=== PATIENT | female | born 1975 | race Caucasian/White ===

== ENCOUNTER 2018-11-03 17:08 | Emergency (ER) | payer OTHER ==
[2018-11-03 17:35] VITALS: BP 145/93
--- NOTE | 2018-11-03 17:40 | UC ---
Minor Trauma HPI - HPI Summary HPI Summary: Patient is a 43-year-old female that slipped and fell on icy stairs about 10 AM this morning. He struck her right mid back. She has taken 2 doses of ibuprofen since the fall. Her pain is still moderate to severe. It hurts when she moves or takes a deep breath in. She does not feel short of breath. She did not sustain any head or neck injury. - History of Current Complaint Chief Complaint: UCBackPain Stated Complaint: BACK INJURY Time Seen by Provider: 11/03/18 17:29 Hx Obtained From: Patient Hx Last Menstrual Period: 1 year Onset/Duration: Gradual Onset, Still Present Onset Of Pain: Immediate Severity Initially: Severe Severity Currently: Severe Pain Intensity: 8 Pain Scale Used: 0-10 Numeric Mechanism Of Injury: Fall From A Standing Position Aggravating Factor(s): Coughing, Deep Breaths, Movement Alleviating Factor(s): OTC Meds Associated Signs And Symptoms: Positive: Ecchymosis - right elbow Body - Head: 1 - tender - Risk Factors Penetrating Injury Risk Factors: Negative - Allergies/Home Medications Allergies/Adverse Reactions: Allergies Allergy/AdvReac Type Severity Reaction Status Date / Time No Known Allergies Allergy Verified 05/25/14 11:53 Home Medications: Home Medications amLODIPine TAB* [Norvasc 5 mg TAB*] 5 mg PO DAILY 11/03/18 [History Confirmed ] PMH/Surg Hx/FS Hx/Imm Hx Previously Healthy: Yes Cardiovascular History: Hypertension - Surgical History Surgical History: Yes Surgery Procedure, Year, and Place: - Family History Known Family History: Positive: Hypertension - Social History Alcohol Use: None Substance Use Type: None Smoking Status (MU): Never Smoked Tobacco Review of Systems All Other Systems Reviewed And Are Negative: Yes Constitutional: Positive: Negative Skin: Positive: Bruising Eyes: Positive: Negative ENT: Positive: Negative Respiratory: Positive: Negative Cardiovascular: Positive: Negative Gastrointestinal: Positive: Negative Genitourinary: Positive: Negative Motor: Positive: Negative Neurovascular: Positive: Negative Musculoskeletal: Positive: Negative Neurological: Positive: Negative Psychological: Positive: Negative Physical Exam Triage Information Reviewed: Yes Appearance: Well-Appearing, No Pain Distress, Well-Nourished Vital Signs: Initial Vital Signs Temp 98 F 11/03/18 17:29 Pulse 60 11/03/18 17:29 Resp 16 11/03/18 17:29 BP 145/93 11/03/18 17:29 Pulse Ox 98 11/03/18 17:29 Vital Signs Reviewed: Yes Eyes: Positive: Conjunctiva Clear ENT: Positive: Hearing grossly normal, Uvula midline. Negative: Nasal congestion, Nasal drainage, Tonsillar swelling, Tonsillar exudate, Muffled voice , Hoarse voice Neck: Positive: Supple, Nontender, No Lymphadenopathy Respiratory: Positive: Lungs clear, Normal breath sounds, No respiratory distress, No accessory muscle use Cardiovascular: Positive: RRR, No Murmur Abdomen Description: Positive: Nontender, No Organomegaly, CVA Tenderness (R). Negative: CVA Tenderness (L) Bowel Sounds: Positive: Present Musculoskeletal: Positive: ROM Intact, No Edema Neurological: Positive: Alert Psychological Exam: Normal Skin Exam: Normal Diagnostics - Laboratory Diagnostic Studies Completed/Ordered: UA -no blood - Radiology No standard instances Radiology Interpretation Completed By: ED Physician Summary of Radiographic Findings: no ptx or rib fx noted Minor Trauma Course/Dx - Differential Dx/Diagnosis Provider Diagnosis: Contusion of back, Contusion of right elbow Discharge - Sign-Out/Discharge Documenting (check all that apply): Patient Departure All imaging exams completed and their final reports reviewed: No - Discharge Plan Condition: Stable Disposition: HOME Patient Education Materials: Contusion in Adults (ED) Referrals: Venkata Neal MD [Primary Care Provider] - 5 Days (if not improved) Additional Instructions: offical XR report pending rest ice continue ibuprofen recheck for new or worsening symptoms - Billing Disposition and Condition Condition: STABLE Disposition: Home
--- NOTE | 2018-11-04 20:08 | UC ---
- Progress Note Progress Note: Radiologist reading of right rib x-rays from November 03, 2018 is noted acute disease process. Provider interpretation from the same date is also no acute disease process therefore there is no discrepancy. Course/Dx - Diagnoses Provider Diagnoses: Contusion of back, Contusion of right elbow Discharge - Sign-Out/Discharge Documenting (check all that apply): Patient Departure All imaging exams completed and their final reports reviewed: Yes - Discharge Plan Condition: Stable Disposition: HOME Patient Education Materials: Contusion in Adults (ED) Referrals: Venkata Neal MD [Primary Care Provider] - 5 Days (if not improved) Additional Instructions: offical XR report pending rest ice continue ibuprofen recheck for new or worsening symptoms - Billing Disposition and Condition Condition: STABLE Disposition: Home
== END 2018-11-03 18:25 | disposition home or self-care (01) ==
LOC: UCEAST 17:08
DX: S20.221A Contusion of right back wall of thorax, initial encounter (principal); S50.01XA Contusion of right elbow, initial encounter; W00.1XXA Fall from stairs and steps due to ice and snow, initial encounter; Y92.9 Unspecified place or not applicable; I10 Essential (primary) hypertension
CPT/HCPCS: 81003; 87086; 99201; G0463